=== PATIENT | female | born 1980 | race Caucasian/White ===

== ENCOUNTER 2016-10-28 11:25 | Outpatient (CLI) | payer OTHER ==
[~2016-10-28] VITALS: Ht 147.3 cm; Wt 74.8 kg
[2016-10-28 13:57] LABS: HEMOGLOBIN 11.3 gm/dl (12.3-15.3); RED BLOOD COUNT 3.75 M/UL (4.00-5.10); WHITE BLOOD COUNT 9.1 K/UL (4.5-11.0)
[2016-10-28 14:12] LABS: BUN/CREATININE RATIO 16 (0-10)
[2017-02-06] MEDS ORDERED: COLACE 100MG C100 MG PO (15:29)
== END 2016-10-29 08:24 | disposition home or self-care (01) ==
LOC: GENOP 11:25
PROVIDERS: Obstetrics & Gynecology
DX: O99.612 Diseases of the digestive system complicating pregnancy, second trimester (principal); O21.2 Late vomiting of pregnancy; Z3A.25 25 weeks gestation of pregnancy
CPT/HCPCS: 36415; 80053; 81001; 84132; 85025; 96361; 96365; 96367; J2550; J3480; J7050; J7120

== ENCOUNTER → 2020-06-22 | Outpatient (CLI) | payer OTHER ==
[~2020-06-22] MED LIST: COLACE 100MG C100 MG PO
[2020-06-22 17:59] LABS: HEMOGLOBIN 12.7 gm/dl (12.3-15.3); RED BLOOD COUNT 4.44 M/UL (4.00-5.10); WHITE BLOOD COUNT 10.2 K/UL (4.5-11.0)
[2020-06-25 08:08] LABS: ESTRADIOL 35.6 pg/mL (.); FSH, SERUM 6.9 mIU/mL (.)
[2020-06-30 23:06] LABS: % FREE TESTOSTERONE (DIALYSIS) 0.9 % (.)
== END ==
LOC: LAB 17:24
PROVIDERS: Physician Assistant
DX: N93.9 Abnormal uterine and vaginal bleeding, unspecified (principal); N92.0 Excessive and frequent menstruation with regular cycle
CPT/HCPCS: 36415; 82670; 82728; 83001; 83002; 84402; 84403; 84443; 84702; 85025

== ENCOUNTER → 2021-06-07 | Outpatient (CLI) | payer OTHER ==
[2021-06-07 14:06] LABS: HEMOGLOBIN 12.8 gm/dl (12.3-15.3); RED BLOOD COUNT 4.42 M/UL (4.00-5.10); WHITE BLOOD COUNT 7.5 K/UL (4.5-11.0)
[2021-06-07 14:29] LABS: BUN/CREATININE RATIO 18 (0-10)
[2021-06-08 10:13] LABS: HBSAG SCREEN Negative (Negative); HCV AB <0.1 (0.0-0.9); HEP B CORE AB, TOT Negative (Negative)
[2021-06-12 03:07] LABS: QUANTIFERON MITOGEN VALUE >10.00 IU/mL (.); QUANTIFERON NIL VALUE 0.04 IU/mL (.); QUANTIFERON TB1 AG VALUE 0.03 IU/mL (.); QUANTIFERON TB2 AG VALUE 0.02 IU/mL (.); QUANTIFERON-TB GOLD PLUS Negative (Negative)
[2021-06-14 16:13] LABS: HLA B 27 DISEASE ASSOCIATION Negative (.)
== END ==
LOC: LAB 13:07
PROVIDERS: Internal Medicine
DX: M54.9 Dorsalgia, unspecified (principal); L40.50 Arthropathic psoriasis, unspecified; M19.90 Unspecified osteoarthritis, unspecified site; L50.9 Urticaria, unspecified; L40.9 Psoriasis, unspecified; Z79.899 Other long term (current) drug therapy
CPT/HCPCS: 36415; 72202; 80053; 81374; 85025; 85652; 86140; 86704; 86803; 87340

== ENCOUNTER → 2021-07-25 | Outpatient (CLI) | payer OTHER | LOC: HEART 5 07-16 10:00 | DX: R55 Syncope and collapse (principal); R00.2 Palpitations ==

== ENCOUNTER → 2021-08-15 | Outpatient (CLI) | payer OTHER | LOC: HEART 5 11:30 | DX: R00.2 Palpitations (principal); R03.0 Elevated blood-pressure reading, without diagnosis of hypertension; R55 Syncope and collapse; R06.02 Shortness of breath; I07.1 Rheumatic tricuspid insufficiency | CPT/HCPCS: 93306 ==

== ENCOUNTER → 2021-08-15 | Outpatient (CLI) | payer OTHER ==
[2021-08-15 14:04] LABS: BUN/CREATININE RATIO 22 (0-10)
== END ==
LOC: LAB 12:36
PROVIDERS: Physician Assistant Surgical
DX: R03.0 Elevated blood-pressure reading, without diagnosis of hypertension (principal); R53.83 Other fatigue; R55 Syncope and collapse; R00.2 Palpitations
CPT/HCPCS: 36415; 80053; 80061